=== PATIENT | female | born 1995 | race African-American/Black ===

== ENCOUNTER 2017-09-22 08:38 | Emergency (ER) | payer SELFPAY ==
[~2017-09-22] VITALS: Ht 175.3 cm; Wt 110.3 kg
[~2017-09-22 08:38] MED LIST: ERYTHROMYCIN-23.6 GM; PROAIR HFA8.5 GM PO
[2017-09-22 09:37] LABS: HEMATOCRIT 41.7 % (36.0-46.0); HEMOGLOBIN 13.2 G/DL (11.9-15.5); MCH 24.9 PG (29.0-34.0); MCHC 31.7 G/DL (30.0-36.0); MCV 78.7 FL (83-99); PLATELET COUNT 270 K/uL (156-360); RBC DIS.WIDTH-CV 15.2 % (11.8-14.6); RBC DIS.WIDTH-SD 43.4 % (39-53); WHITE BLOOD COUNT 7.5 K/uL (4.1-10.2)
[2017-09-22 09:47] LABS: ALBUMIN 4.1 g/dL (3.2-4.8); CHLORIDE 105 mEq/L (99-109); POTASSIUM 3.9 mEq/L (3.7-5.4); SODIUM 138 mEq/L (136-147)
[2017-09-22 09:49] LABS: GLUCOSE 117 mg/dL (70-99)
[2017-09-22 09:50] LABS: TOTAL PROTEIN 7.7 g/dL (6.4-8.3)
[2017-09-22 09:51] LABS: TOTAL BILIRUBIN 1.1 mg/dL (0.0-1.0)
[2017-09-22 09:53] LABS: ALKALINE PHOSPHATASE 112 IU/L (3-129); CREATININE 0.7 mg/dL (0.6-1.3); GFR ESTIMATE (CALCULATED) > 59 mL/min/
[2017-09-22 09:54] LABS: UREA NITROGEN (BUN) 12 mg/dL (9-23)
[2017-09-22 09:55] LABS: AST (GOT) 14 IU/L (2-34)
[2017-09-22 09:56] LABS: ALT (GPT) 20 IU/L (3-49)
[2017-09-22 10:02] LABS: QUANTITATIVE HCG < 4.0 MIU/ML
[2017-09-22 10:20] LABS: APPEARANCE SL.HAZY ((CLEAR)); BILIRUBIN NEGATIVE; BLOOD NEGATIVE; COLOR YELLOW ((YELLOW)); GLUCOSE (STRIP) NEGATIVE; KETONES NEGATIVE; LEUKOCYTES NEGATIVE; NITRITE POSITIVE; PROTEIN (STRIP) 100; SPECIFIC GRAVITY 1.025 (1.000-1.030)
[2017-09-22 10:31] LABS: BACTERIA RARE /HPF; EPITHELIAL CELLS 1+ /HPF; MUCUS 2+ /LPF; UCUL ADDED? NO; WHITE BLOOD CELLS 0-5 /HPF (0-5)
[2017-09-22] MEDS ORDERED: ZOFRAN ODT4 MG PO (11:14)
[2017-09-22] MEDS ORDERED: KEFLEX500 MG PO (11:14)
[2017-09-22 11:39] LABS: LIPASE 4 U/L (1.0-51.0)
[2017-09-22 13:15] VITALS: BP 96/58
== END 2017-09-22 13:16 | disposition home or self-care (01) ==
LOC: EME 08:38
PROVIDERS: Nurse Practitioner Family
DX: N39.0 Urinary tract infection, site not specified (principal); R10.13 Epigastric pain; J45.909 Unspecified asthma, uncomplicated; F17.200 Nicotine dependence, unspecified, uncomplicated
CPT/HCPCS: 76705; 80053; 81003; 83690; 84702; 85027; 99281; 99285; J1885; J2405